=== PATIENT | female | born 1965 | race Caucasian/White ===

== ENCOUNTER 2022-08-07 06:14 | Inpatient (IN) ==
--- NOTE | 2022-08-06 15:27 | XRay Report ---
CLINICAL INFORMATION: Preop COMPARISON: None. TECHNIQUE: PA and lateral views were obtained. FINDINGS: The heart size, mediastinum and pulmonary vessels are unremarkable. The lungs are clear. There are no effusions. The bones and soft tissues are within normal limits. IMPRESSION: Normal chest. Interpreted and Authenticated by: Abhilash Edmonds 08/06/22
[2022-08-06 17:19] LABS: Basophils # (Auto) 0.08 K/mcL (0.00-0.30); Basophils % (Auto) 1.1 % (0.0-2.0); Eosinophils # (Auto) 0.14 K/mcL (0.00-0.70); Eosinophils % (Auto) 1.9 % (0.0-7.0); Hematocrit 43.1 % (34.1-44.9); Hemoglobin 14.1 g/dL (11.2-15.7); Lymphocytes # (Auto) 1.81 K/mcL (1.50-4.80); Lymphocytes % (Auto) 24.2 % (15.5-49.0); Mean Cell Volume 88.3 fL (80.0-100.0); Mean Corpuscular HGB Conc 32.7 g/dL (31.0-36.0); Mean Platelet Volume 8.8 fL (8.8-12.5); Monocytes # (Auto) 0.71 K/mcL (0.10-0.90); Monocytes % (Auto) 9.5 % (1.0-12.0); Neutrophils % (Auto) 62.8 % (38.0-78.0); Platelet Count 366 K/mcL (140-440); RBC 4.88 M/mcL (3.59-5.38); Red Cell Distribution Width 13.4 % (11.5-14.5); WBC 7.5 K/mcL (4.5-11.0)
[2022-08-06 17:25] LABS: INR 0.9 (0.9-1.1); Partial Thromboplastin Time 28.7 sec (20.0-37.0); Prothrombin Time 12.6 sec (11.9-14.5)
[2022-08-06 17:48] LABS: ALT/SGPT 20 U/L (<40); AST/SGOT 23 U/L (<32); Albumin 4.6 gm/dL (3.2-5.2); Albumin/Globulin Ratio 1.4 (1.0-2.3); Alkaline Phosphatase 67 U/L (39-117); Bilirubin,Total 0.3 mg/dL (0.1-1.0); Blood Urea Nitrogen 21 mg/dL (6-20); Calcium 10.1 mg/dL (8.6-10.4); Carbon Dioxide 31 mmol/L (22-30); Chloride 94 mmol/L (96-108); Globulin 3.3 gm/dL (2.2-3.7); Glomerular Filtration Rate 45; Glucose 113 mg/dL (70-105)
[2022-08-06 17:55] LABS: Estimated Average Glucose(eAG) 146 mg/dL; Hemoglobin A1C 6.7 % Hgb (4.0-6.0)
[~2022-08-07 06:14] MED LIST: CEFEPIME 2 GM VIAL IV SCH
[2022-08-07] MEDS ORDERED: MIDAZOLAM 2 MG/2 ML VIAL ONE (07:29)
[2022-08-07] MEDS ORDERED: LIDOCAINE HCL/PF 100 MG/5 ML SYRINGE IV ONE (07:29)
[2022-08-07] MEDS ORDERED: ROCURONIUM 10 MG/ML ML IV ONE (07:29)
[2022-08-07] MEDS ORDERED: fentaNYL 100 MCG/2 ML VIAL IV ONE (07:29)
[2022-08-07] MEDS ORDERED: SUGAMMADEX SODIUM 200 MG/2 ML VIAL IV ONE (07:29)
[2022-08-07] MEDS ORDERED: PROPOFOL 200 MG/20 ML VIAL IV ONE (07:29)
[2022-08-07] MEDS ORDERED: ONDANSETRON 4 MG/2 ML VIAL ONE (07:29)
[2022-08-07] MEDS ORDERED: DEXAMETHASONE 10 MG/ML VIAL ONE (07:29)
[2022-08-07] MEDS ORDERED: ONDANSETRON 4 MG/2 ML VIAL IV PRN ×2 (08:13→08:25)
[2022-08-07] MEDS ORDERED: PROMETHAZINE 25 MG/ML VIAL IV PRN (08:13)
--- NOTE | 2022-08-07 08:13 | Brief Operative Note ---
Brief Operative Note Date of procedure: 08/07/22 Pre-op diagnosis: chronic gastrocutaneous fistula Post-op diagnosis: other (gastrocutaneous fistula) Procedure: laparoscopic closure of gastrocutaneous fistula excision of fistula tract of abdominal wall Grafts/Implants: No Anesthesia: GETA Findings: chronic adherence of stomach to abdominal wall with fistula formation Complications: none Surgeon: Jay Lindsey Estimated blood loss (cc): 5 Specimens Removed/Pathology: none sent Condition: stable Disposition: PACU
[2022-08-07] MEDS ORDERED: IPRATROPIUM/ALBUTEROL 3 ML AMPUL.NEB NEB PRN (08:25)
[2022-08-07] MEDS ORDERED: HYDROmorphone 0.5 MG/0.5 ML SYRINGE IV PRN (08:25)
[2022-08-07] MEDS ORDERED: ACETAMINOPHEN 1,000 MG/100 ML BAG IV ONE (08:25)
[2022-08-07] MEDS ORDERED: fentaNYL 100 MCG/2 ML VIAL IV PRN (08:25)
[2022-08-07] MEDS: 0.9 % SODIUM CHLORIDE 1,000 ML IV SCH ×2 (10:21→23:52)
[2022-08-07] MEDS: DOCUSATE SODIUM 100 MG CAPSULE PO SCH ×2 (10:29→20:25)
[2022-08-07] MEDS: HYDROCHLOROTHIAZIDE 25 MG TABLET PO SCH (10:29)
[2022-08-07] MEDS: PIOGLITAZONE 15 MG TABLET PO SCH (10:29)
[2022-08-07] MEDS: oxyCODONE HCL 5 MG TABLET PO PRN ×3 (10:29→20:44)
--- NOTE | 2022-08-07 10:53 | Operative Note ---
DATE OF OPERATION: 08/07/2022 PREOPERATIVE DIAGNOSIS: Chronic gastrocutaneous fistula. POSTOPERATIVE DIAGNOSIS: Chronic gastrocutaneous fistula. PROCEDURE: Laparoscopic closure of gastrocutaneous fistula with excision of fistulous tract of abdominal wall. SURGEON: Jay Lindsey M.D. DESCRIPTION OF PROCEDURE: Under general anesthesia, the patient's abdomen was prepped and draped in a sterile field. Timeout procedure was carried out as per protocol. Supraumbilical midline incision was made. Veress needle was inserted uneventfully. Abdomen was insufflated with 3 liters of CO2. A 12 mm port was placed. Laparoscope was placed. The adherence of the stomach to the anterior abdominal wall in the upper midline was confirmed. Under videoscopic guidance, a 12 mm port was placed in the left side of the abdomen at the level of the umbilicus. A 5 mm port was placed laterally in the left upper quadrant. Adhesions to the stomach attaching it to the abdominal wall were incised with electrocautery. The adherent gastric wall was then dissected and transected using the Endo STACY stapler at a level even with the abdominal wall. This closed the stomach and detached it from the abdominal wall. The remnant of gastric wall that remained was left intact. Inspection of the abdomen did not reveal any other abnormality. The fistulous tract through the abdominal wall was circumferentially excised down to the peritoneum. The peritoneum was not opened. The fistulous tract was only about 2 to 3 mm. CO2 was allowed to escape from the abdomen and the ports were removed. The residual abdominal wall defect was then packed with Aquacel AG gauze. It was covered with 4 x 4's and tape. The fascia and the supraumbilical midline incision was closed with interrupted 0 Vicryl. The abdominal incisions were closed with betty. They were then covered with Tegaderm. The patient tolerated the procedure well. She was awakened, extubated, and transferred to the postanesthetic care unit in satisfactory condition. LCS:magdiel Job ID: [id number] Doc ID: [id number] Jay Lindsey M.D.
[2022-08-07] MEDS ORDERED: DEXTROSE 31 GM ORAL.SUSP PO PRN (11:48)
[2022-08-07] MEDS ORDERED: DEXTROSE 50% 50 ML VIAL IV PRN (11:48)
--- NOTE | 2022-08-07 12:02 | EKG ---
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 Measurements Intervals [place] Rate: 105 P: 50 IN: 180 QRS: 4 QRSD: 80 T: 56 QT: 359 QTc: 475 Interpretive Statements Sinus tachycardia Probable left atrial enlargement Low voltage, precordial leads Minimal ST depression, diffuse leads Electronically Signed On 08-07-2022 12:01:43 PST by Abhilash Ogden M.D. /store/[email or web address]/[id number]
[2022-08-07] MEDS: INSULIN LISPRO 1 UNIT/0.01 ML UNIT SQ SCH ×3 (12:35→20:44)
[2022-08-07] MEDS: CEFEPIME 2 GM VIAL IV SCH ×2 (14:42→22:14)
[2022-08-07] MEDS: 0.9 % SODIUM CHLORIDE 10 ML SYRINGE IV SCH ×2 (14:42→22:15)
[2022-08-07] MEDS: SENNOSIDES 1 TABLET PO SCH (20:25)
[2022-08-08] MEDS: 0.9 % SODIUM CHLORIDE 10 ML SYRINGE IV SCH ×3 (05:36→22:46)
[2022-08-08] MEDS: CEFEPIME 2 GM VIAL IV SCH ×3 (05:36→22:46)
[2022-08-08 07:39] LABS: Basophils # (Auto) 0.02 K/mcL (0.00-0.30); Basophils % (Auto) 0.2 % (0.0-2.0); Eosinophils # (Auto) 0.03 K/mcL (0.00-0.70); Eosinophils % (Auto) 0.3 % (0.0-7.0); Hematocrit 37.7 % (34.1-44.9); Hemoglobin 12.3 g/dL (11.2-15.7); Lymphocytes # (Auto) 1.36 K/mcL (1.50-4.80); Lymphocytes % (Auto) 14.5 % (15.5-49.0); Mean Cell Volume 90.4 fL (80.0-100.0); Mean Corpuscular HGB Conc 32.6 g/dL (31.0-36.0); Monocytes # (Auto) 0.67 K/mcL (0.10-0.90); Monocytes % (Auto) 7.1 % (1.0-12.0); Neutrophils % (Auto) 77.6 % (38.0-78.0); Platelet Count 327 K/mcL (140-440); RBC 4.17 M/mcL (3.59-5.38); Red Cell Distribution Width 13.6 % (11.5-14.5); WBC 9.4 K/mcL (4.5-11.0)
[2022-08-08] MEDS: INSULIN LISPRO 1 UNIT/0.01 ML UNIT SQ SCH ×4 (07:45→21:12)
[2022-08-08] MEDS: glipiZIDE 5 MG TAB.XL.24H PO SCH (07:53)
[2022-08-08] MEDS: PANTOPRAZOLE 40 MG TABLET PO SCH (07:53)
[2022-08-08 08:12] LABS: ALT/SGPT 16 U/L (<40); AST/SGOT 17 U/L (<32); Albumin 3.8 gm/dL (3.2-5.2); Albumin/Globulin Ratio 1.5 (1.0-2.3); Alkaline Phosphatase 52 U/L (39-117); Bilirubin,Direct < 0.2 mg/dL (0-0.3); Bilirubin,Total 0.4 mg/dL (0.1-1.0); Blood Urea Nitrogen 13 mg/dL (6-20); Calcium 9.4 mg/dL (8.6-10.4); Carbon Dioxide 29 mmol/L (22-30); Chloride 97 mmol/L (96-108); Globulin 2.5 gm/dL (2.2-3.7); Glomerular Filtration Rate 70; Glucose 112 mg/dL (70-105); Lactate Dehydrogenase 222 U/L (135-225); Phosphorous 3.9 mg/dL (2.5-4.5); Triglycerides 127 mg/dL (<150); Uric Acid 5.4 mg/dL (2.5-8.0)
[2022-08-08] MEDS: PIOGLITAZONE 15 MG TABLET PO SCH (09:53)
[2022-08-08] MEDS: DOCUSATE SODIUM 100 MG CAPSULE PO SCH ×2 (09:53→21:13)
[2022-08-08] MEDS: HYDROCHLOROTHIAZIDE 25 MG TABLET PO SCH (10:04)
[2022-08-08] MEDS: 0.9 % SODIUM CHLORIDE 1,000 ML IV SCH (12:01)
[2022-08-08] MEDS: oxyCODONE HCL 5 MG TABLET PO PRN (15:01)
--- NOTE | 2022-08-08 15:51 | General Surgery Progress Note ---
SUBJECTIVE Subjective Patient information: Note initiated : 08/08/22 at 3:50 pm Service Date, if different from initiated Date: [] Patient: Maria Dolores Engel 56 y/o F admitted on 08/07/22 for Laparoscopic Closure of Gastrocutaneous Fistula & . Chief Complaint: [] Interval history: Patient is doing well. She has had no significant abdominal pain. She complains of hunger. She is afebrile. White blood count is normal Constitutional Vitals: Vital Signs Temp Pulse Resp BP Pulse Ox O2 Del Method O2 Flow Rate 97.8 F 82 14 129/65 100 Room Air 6 08/08/22 12:00 08/08/22 12:00 08/08/22 12:00 08/08/22 12:00 08/08/22 12:00 08/08/22 12:00 08/07/22 08:33 Period Temp Pulse Resp BP Sys/Rene Pulse Ox O2 Del Method O2 Flow Rate Last 24 Hr 97.1 F-97.9 F 75-94 14-18 97-129/48-65 93-100 Room Air-Room Air Intake and Output 08/08/22 08/08/22 08/08/22 03:59 11:59 19:59 Intake Total 6905 058 9368 Output Total 1150 Balance 60 380 1911 Weight 213 lb 8 oz Intake & Output: Intake & Output 08/08/22 08/08/22 08/08/22 03:59 11:59 19:59 Intake Total 5354 002 8111 Output Total 1150 Balance 60 380 1911 Weight 213 lb 8 oz Intake: IV 1000 1911 Sodium Chloride 0.9% 1,000 ml @ 1000 1911 75 mls/hr IV .[id number] [facility] Rx#: [id number] Oral 210 380 Output: Void Amount 1150 Other: Meal Jello and popsicle Percent of Meal Consumed 100% Feeding Ability Independent Urine Appearance Clear Urine Color Yellow ENT ENT exam: Present mucous membranes moist and normal oropharynx Neck Neck exam: Present full ROM and normal inspection Respiratory Respiratory exam: Present normal respiratory exam and CTAB Cardiovascular Cardiovascular exam: Present normal rate and rhythm, RRR, +S1 and +S2; Absent JVD GI/Abdominal GI/Abdominal exam: Present normal bowel sounds and soft; Absent distended Additional comments: Fistula site has less erythema and induration Extremities Exam Extremities exam: Present normal inspection and neurovascular intact Neurological Exam Neurological exam: Present alert and oriented X3; Absent motor sensory deficit Psychiatric Psychiatric exam: Present normal affect and normal mood A/P Assessment and plan (1) Gastrocutaneous fistula due to gastrostomy tube: Status: Acute (2) Depression with anxiety: Status: Chronic Comment: Improved. After weaning off of Zoloft, she did not feel that she needed to start bupropion. In remission. Plan Continue present treatment; EEG advance to full liquid diet Time Spent With Patient Time: Total time spent is greater than 50% in coordination of care (as documented) at patient's floor/unit and/or counseling patient:
[2022-08-08] MEDS: SENNOSIDES 1 TABLET PO SCH (21:13)
[2022-08-09] MEDS: 0.9 % SODIUM CHLORIDE 1,000 ML IV SCH (00:05)
[2022-08-09] MEDS: oxyCODONE HCL 5 MG TABLET PO PRN (02:04)
[2022-08-09] MEDS: CEFEPIME 2 GM VIAL IV SCH (05:06)
[2022-08-09] MEDS: 0.9 % SODIUM CHLORIDE 10 ML SYRINGE IV SCH (05:07)
[2022-08-09] MEDS: INSULIN LISPRO 1 UNIT/0.01 ML UNIT SQ SCH ×2 (07:07→11:48)
[2022-08-09] MEDS: PIOGLITAZONE 15 MG TABLET PO SCH (08:15)
[2022-08-09] MEDS: glipiZIDE 5 MG TAB.XL.24H PO SCH (08:17)
[2022-08-09] MEDS: HYDROCHLOROTHIAZIDE 25 MG TABLET PO SCH (08:17)
[2022-08-09] MEDS: DOCUSATE SODIUM 100 MG CAPSULE PO SCH (08:18)
[2022-08-09] MEDS: PANTOPRAZOLE 40 MG TABLET PO SCH (08:18)
--- NOTE | 2022-08-09 13:18 | Discharge Summary ---
Discharge Provider Provider IMPORTANT FOLLOW-UP INFORMATION FOR PCP: Patient information: Note initiated : 08/09/22 at 1:12 pm Service Date, if different from initiated Date: [] Patient: Maria Dolores Engel 56 y/o F admitted on 08/07/22 for Laparoscopic Closure of Gastrocutaneous Fistula & . Chief Complaint: [] Date of admission: 08/07/22 09:09 Discharge date: 08/09/22 Primary care physician: Abhilash Gallegos DO Admitting clinician: Jay Lindsey Attending physician on admission: Jay Lindsey Attending physician on discharge: Jay Lindsey Discharging clinician: Jay Lindsey COURSE Hospital Course Hospital course: 56 -year-old female who is status post laparoscopic closure of the gastrocutaneous fistula with excision of fistulous tract of the abdominal . This was performed on 07 August 2022. She has done well and has no complaints. She is tolerating clear liquid diet without difficulty. Wound is clearing up nicely. Patient is stable for discharge to home Discharge diagnosis: Gastrocutaneous fistula Secondary discharge diagnosis: Cellulitis of abdominal wall Depression with anxiety Hypertension Diabetes mellitus Reason for admission: Postoperative closure of gastrocutaneous fistula Procedures: Laparoscopic closure of gastrocutaneous fistula with excision of infection of abdominal wound Pertinent studies/significant findings: None Complications: None Time Spent with Patient Time attestation: Total time spent providing and/or coordinating discharge services: Time spent: Less than 30 minutes Physical Examination Vital Signs Vital signs: Temp Pulse Resp BP Pulse Ox O2 Del Method O2 Flow Rate 97.7 F 88 16 136/58 100 Room Air 6 08/09/22 12:00 08/09/22 12:00 08/09/22 12:08/09/22 12:08/09/22 12:08/09/22 12:08/07/22 08:33 General physical appearance General physical exam: well developed, well nourished, no distress and moderate pain Eyes Eye exam: PERRL and normal ocular movement ENT ENT exam: normal nares, normal mucosa and no congestion Head Head exam IM: Present atraumatic, normal inspection and normocephalic Neck Neck exam: no masses, no bruits, trachea midline, no lymphadenopathy and no venous distension Cardiovascular Cardiovascular exam IM: Present normal rate and rhythm, RRR, +S1 and +S2; Absent JVD Respiratory Respiratory exam: normal expansion, normal respiratory effort and clear to auscultation Abdomen Abdomen: Present soft and surgical scars (Port sites are unremarkable; early granulation Of abdominal wall incision) Integumentary Integumentary: Present no rash, no growths and no abnormal pigmentation Neurologic Neurologic: Present normal coordination Musculoskeletal Musculoskeletal: Present normal gait and normal posture Psychiatric Psychiatric: Present oriented to time, oriented to person, oriented to place, speech is normal and memory intact Discharge Plan Patient/Caregiver Discharge Instructions Activity: increase activity as tolerated Diet: Regular Diet and Consistent Carbohydrate Prescriptions: New ciprofloxacin HCl 500 mg tablet 500 mg PO BID MDD The Qty: 40 0RF oxycodone-acetaminophen [Endocet] 10-325 mg tablet 1 tab PO Q4H PRN (Reason: Pain) Qty: 30 0RF No Action hydrochlorothiazide 25 mg tablet 25 mg PO QAM Qty: 90 3RF pioglitazone 30 mg tablet 30 mg PO QDAY Qty: 90 3RF rosuvastatin 5 mg tablet 5 mg PO QDAY Qty: 90 1RF Victoza 2-Javed 0.6 mg/0.1 mL (18 mg/3 mL) pen injector 1.2 mg subcut QDAY Qty: 6 11RF (DME) pen needle, diabetic [Comfort EZ Pen Almo] 33 gauge x 5/32" needle See Rx Instructions .Route Qty: 200 3RF Rx Instructions: Use with Victoza BID potassium chloride 10 mEq tablet extended release 10 meq PO QDAY Qty: 90 3RF (DME) blood sugar diagnostic [Contour Next Test Strips] Strip See Rx Instructions .ROUTE .MEDSUPPLY Qty: 100 3RF Rx Instructions: Test once daily- non insulin (DME) lancets [BD Ultra Fine Lancets] 33 gauge misc See Rx Instructions .ROUTE .MEDSUPPLY Qty: 100 3RF Rx Instructions: Test once daily-non insulin dependent glipizide 10 mg tablet extended release 24hr 10 mg PO QDAY Qty: 90 3RF cefuroxime axetil 500 mg tablet 500 mg PO BID Qty: 40 0RF sulfamethoxazole-trimethoprim [Bactrim DS] 800-160 mg tablet 1 tab PO BID Qty: 40 0RF Prescription drug monitoring program results: PDMP not reviewed Follow Up Plan Follow up with: Jay Lindsey MD [Physician] - (Contact office on Friday for dressing change) Patient Disposition: Home, Self-Care Prognosis: Good Rehab Potential: Good I certify that the patient requires SNF services: No Overall status at discharge: patient is progressing back to baseline Pending Pending Pending: Resuscitation Status Resuscitate (Full Code) Diet Full Liquid Diet Start FriAug 08 1548 Cefepime HCl (Cefepime 2 Gm Vial) 2 gm IV Q8H [facility]; Protocol Last Admin: 08/09/22 05:06 Dose: 2 gm Documented By: Admin: 08/08/22 22:46 Dose: 2 gm Documented By: Admin: 08/08/22 14:48 Dose: 2 gm Documented By: Admin: 08/08/22 05:36 Dose: 2 gm Documented By: Admin: 08/07/22 22:14 Dose: 2 gm Documented By: Admin: 08/07/22 14:42 Dose: 2 gm Documented By: CEE Diagnostic Test (Pha) (Accu-Chek 1 Each Strip) 1 each FS PRN PRN PRN Reason: DM Last Admin: 08/07/22 08:29 Dose: 1 each Documented By: CINDA Diagnostic Test (Pha) (Accu-Chek 1 Each Strip) 1 each FS ACHS [facility] Last Admin: 08/09/22 11:44 Dose: 1 each Documented By: Admin: 08/09/22 07:07 Dose: 1 each Documented By: Admin: 08/08/22 21:13 Dose: 1 each Documented By: Admin: 08/08/22 17:12 Dose: 1 each Documented By: Admin: 08/08/22 11:53 Dose: 1 each Documented By: Admin: 08/08/22 07:44 Dose: 1 each Documented By: Admin: 08/07/22 20:24 Dose: 1 each Documented By: Admin: 08/07/22 16:30 Dose: 1 each Documented By: Admin: 08/07/22 11:15 Dose: 1 each Documented By: CEE Docusate Sodium (Docusate Sodium 100 Mg Capsule) 100 mg PO BID [facility] Last Admin: 08/09/22 08:18 Dose: 100 mg Documented By: Co-signed By: AMIE Admin: 08/08/22 21:13 Dose: 100 mg Documented By: Admin: 08/08/22 09:53 Dose: 100 mg Documented By: Admin: 08/07/22 20:25 Dose: 100 mg Documented By: Admin: 08/07/22 10:29 Dose: 100 mg Documented By: CEE Glipizide (Glipizide 5 Mg Tab.Xl.24h) 10 mg PO [facility] Last Admin: 08/09/22 08:17 Dose: 10 mg Documented By: Co-signed By: AMEI Admin: 08/08/22 07:53 Dose: 10 mg Documented By: YURI Hydrochlorothiazide (Hydrochlorothiazide 25 Mg Tablet) 25 mg PO [facility] Last Admin: 08/09/22 08:17 Dose: 25 mg Documented By: Co-signed By: AMIE Admin: 08/08/22 10:04 Dose: 25 mg Documented By: Admin: 08/07/22 10:29 Dose: 25 mg Documented By: CEE Sodium Chloride (Sodium Chloride 0.9%) 1,000 mls @ 75 mls/hr IV .[id number] [facility] Last Admin: 08/09/22 00:05 Dose: 75 mls/hr Documented By: Infusion: 08/08/22 12:06 Dose: 0 mls/hr Documented By: Admin: 08/08/22 12:01 Dose: 75 mls/hr Documented By: Infusion: 08/08/22 12:01 Dose: 75 mls/hr Documented By: Admin: 08/07/22 23:52 Dose: 75 mls/hr Documented By: Infusion: 08/07/22 23:41 Dose: 75 mls/hr Documented By: Admin: 08/07/22 10:21 Dose: 75 mls/hr Documented By: CEE Insulin Human Lispro (Insulin Lispro 1 Unit/0.01 Ml Unit) 0 unit SQ ACHS [facility]; Protocol Last Admin: 08/09/22 11:48 Dose: 2 units Documented By: Admin: 08/09/22 07:07 Dose: Not Given Documented By: Admin: 08/08/22 21:12 Dose: 4 units Documented By: Admin: 08/08/22 17:12 Dose: Not Given Documented By: Admin: 08/08/22 11:55 Dose: Not Given Documented By: Admin: 08/08/22 07:45 Dose: Not Given Documented By: Admin: 08/07/22 20:44 Dose: 2 units Documented By: Admin: 08/07/22 16:53 Dose: 2 units Documented By: Admin: 08/07/22 12:35 Dose: 4 units Documented By: CEE Oxycodone HCl (Oxycodone Hcl 5 Mg Tablet) 10 mg PO Q4HP PRN; Protocol PRN Reason: Per Pain Protocol Last Admin: 08/09/22 02:04 Dose: 10 mg Documented By: Admin: 08/08/22 15:01 Dose: 10 mg Documented By: Admin: 08/07/22 20:44 Dose: 10 mg Documented By: Admin: 08/07/22 16:28 Dose: 10 mg Documented By: Admin: 08/07/22 10:29 Dose: 10 mg Documented By: CEE Pantoprazole S[facility] ([facility]oprazole 40 Mg Tablet) [facility]: 08/09/22 08:18 Dose: 40 mg Documented By: Co-signed By: AMIE Admin: 08/08/22 07:53 Dose: 40 mg Documented By: YURI Liraglutide [Victoza 2-Javed] 0.6 Mg/0.1 Ml Pen 1.2 dose SUB-Q QDAY [facility] Admin: 08/09/22 08:47 Dose: Not Given Documented By: Admin: 08/08/22 09:57 Dose: Not Given Documented By: Admin: 08/07/22 10:32 Dose: Not Given Documented By: CEE Pioglitazone HCl (Pioglitazone 15 Mg Tablet) 30 mg PO DAILY [facility] Admin: 08/09/22 08:15 Dose: 30 mg Documented By: Co-signed By: AMIE Admin: 08/08/22 09:53 Dose: 30 mg Documented By: Admin: 08/07/22 10:29 Dose: 30 mg Documented By: CEE Senjenelle (Sennosides 1 Tablet) 2 tab PO HS [facility] Last Admin: 08/08/22 21:13 Dose: 2 tab Documented By: Admin: 08/07/22 20:25 Dose: 2 tab Documented By: RUSS Sodium Chloride (0.9 % Sodium Chloride 10 Ml Syringe) 10 ml IV Q8 [facility] Last Admin: 08/09/22 05:07 Dose: 10 ml Documented By: Admin: 08/08/22 22:46 Dose: 10 ml Documented By: Admin: 08/08/22 12:07 Dose: Not Given Documented By: Admin: 08/08/22 05:36 Dose: Not Given Documented By: Admin: 08/07/22 22:15 Dose: Not Given Documented By: Admin: 08/07/22 14:42 Dose: Not Given Documented By: CEE Shift Summary 08/09/22 03:02 Shift Summary by Maximo Walls Primary Diagnosis: Registration Status: IP Date of Surgery (if applicable): 08/07 Pertinent Medical Dx/Issue(s): Depression, anxiety, Diabetes (II), HTN Med management (antibiotics, diuretics, BP): Maxipime Skin/Wound Care: lap sites x4, gauze on top middle site, other 3 haves betty and tegaderm in place Vital Signs with Trends: VSS O2, liter flow/saturations: RA, satting mid to high 90s Pain management (acute vs. chronic): acute, occasional pain treated with oxycodone Lab/Rad (abnormals, trends): N/A Neuro/Mental Status: A/Ox4 Cardiac Rhythm, Alarm Settings: N/A Urinary Elimination Device: Bathroom Date of last BM: none since surgery Lines/Tubes: IV LFA running NS at 75ml/hr Activity: independent, calls appropriately to walk hallway, walked to nurses station x1 Recommendations/questions for MD: Home diabetic Med, patient has not had since arrival. it is scheduled for the morning but the patient states that at home she takes it at night before bed, and refuses to deviate from that routine. Discharge Plan (needs, disposition, etc): Home when appropriate. Summary: patient had a good night. only complained of pain x1 in middle of the night, treated with PO opioid medication. on CL diet, hopefully can advance diet today. BT hypoactive, dressings are CDI Initialized on 08/09/22 03:02 - END OF NOTE
--- NOTE | 2022-08-09 13:33 | Discharge Summary ---
Discharge Provider Provider IMPORTANT FOLLOW-UP INFORMATION FOR PCP: Patient information: Note initiated : 08/09/22 at 1:28 pm Service Date, if different from initiated Date: [] Patient: Maria Dolores Engel 56 y/o F admitted on 08/07/22 for Laparoscopic Closure of Gastrocutaneous Fistula & . Chief Complaint: [] Date of admission: 08/07/22 09:09 Discharge date: 08/09/22 Primary care physician: Abhilash Gallegos DO Admitting clinician: Jay Lindsey Attending physician on admission: Jay Lindsey Attending physician on discharge: Jay Lindsey Discharging clinician: Jay Lindsey COURSE Hospital Course Hospital course: 56-year-old female who is status post laparoscopic closure of the gastrocutaneous fistula. She has had the fistula since 2019 when she had a PEG tube discontinued. Generally patients will close but hers has been resistant to closure. She has had multiple infections recently treated with antibiotics. Patient had laparoscopic closure of the fistula and the 25th and has done well. The abdominal wall fistula was excised. Patient has not had any complaints. She is tolerated without difficulty. 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 Reason for admission: Postoperative care Procedures: Laparoscopic closure of gastrocutaneous fistula Pertinent studies/significant findings: None Complications: None Time Spent with Patient Time attestation: Total time spent providing and/or coordinating discharge services: Time spent: Less than 30 minutes Physical Examination Vital Signs Vital signs: Temp Pulse Resp BP Pulse Ox O2 Del Method O2 Flow Rate 97.7 F 88 16 136/58 100 Room Air 6 08/09/22 12:08/09/22 12:08/09/22 12:08/09/22 12:08/09/22 12:08/09/22 12:08/07/22 08:33 Head Head exam IM: Present atraumatic, normal inspection and normocephalic Neck Neck exam: no masses, no bruits, trachea midline and no lymphadenopathy Cardiovascular Cardiovascular exam IM: Present normal rate and rhythm, RRR, +S1 and +S2; Absent JVD Respiratory Respiratory exam: normal expansion, normal respiratory effort and clear to auscultation Abdomen Abdomen: Present surgical scars (Port sites are healing uneventfully) and wound (Upper midline wound is granulating in without difficulty) Integumentary Integumentary: Present no rash, no growths and no abnormal pigmentation Neurologic Neurologic: Present normal coordination and normal sensation Musculoskeletal Musculoskeletal: Present normal gait and normal posture Psychiatric Psychiatric: Present oriented to time, oriented to person, oriented to place, speech is normal and memory intact Discharge Plan Patient/Caregiver Discharge Instructions Activity: increase activity as tolerated Diet: Regular Diet and Consistent Carbohydrate Prescriptions: New ciprofloxacin HCl 500 mg tablet 500 mg PO BID MDD The Qty: 40 0RF oxycodone-acetaminophen [Endocet] 10-325 mg tablet 1 tab PO Q4H PRN (Reason: Pain) Qty: 30 0RF No Action hydrochlorothiazide 25 mg tablet 25 mg PO QAM Qty: 90 3RF pioglitazone 30 mg tablet 30 mg PO QDAY Qty: 90 3RF rosuvastatin 5 mg tablet 5 mg PO QDAY Qty: 90 1RF Victoza 2-Javed 0.6 mg/0.1 mL (18 mg/3 mL) pen injector 1.2 mg subcut QDAY Qty: 6 11RF (DME) pen needle, diabetic [Comfort EZ Pen Wilson] 33 gauge x 5/32" needle See Rx Instructions .Route Qty: 200 3RF Rx Instructions: Use with Victoza BID potassium chloride 10 mEq tablet extended release 10 meq PO QDAY Qty: 90 3RF (DME) blood sugar diagnostic [Contour Next Test Strips] Strip See Rx Instructions .ROUTE .MEDSUPPLY Qty: 100 3RF Rx Instructions: Test once daily- non insulin (DME) lancets [BD Ultra Fine Lancets] 33 gauge misc See Rx Instructions .ROUTE .MEDSUPPLY Qty: 100 3RF Rx Instructions: Test once daily-non insulin dependent glipizide 10 mg tablet extended release 24hr 10 mg PO QDAY Qty: 90 3RF cefuroxime axetil 500 mg tablet 500 mg PO BID Qty: 40 0RF sulfamethoxazole-trimethoprim [Bactrim DS] 800-160 mg tablet 1 tab PO BID Qty: 40 0RF Prescription drug monitoring program results: PDMP not reviewed Follow Up Plan Follow up with: Jay Lindsey MD [Physician] - (Contact office on Friday for dressing change) Patient Disposition: Home, Self-Care Prognosis: Good Rehab Potential: Good I certify that the patient requires SNF services: No Overall status at discharge: patient is progressing back to baseline Pending Pending Pending: Resuscitation Status Resuscitate (Full Code) Diet Full Liquid Diet Start FriAug 08 154 Cefepime HCl (Cefepime 2 Gm Vial) 2 gm IV Q8H [facility]; Protocol Last Admin: 08/09/22 05:06 Dose: 2 gm Documented By: Admin: 08/08/22 22:46 Dose: 2 gm Documented By: Admin: 08/08/22 14:48 Dose: 2 gm Documented By: Admin: 08/08/22 05:36 Dose: 2 gm Documented By: Admin: 08/07/22 22:14 Dose: 2 gm Documented By: Admin: 08/07/22 14:42 Dose: 2 gm Documented By: CEE Diagnostic Test (Pha) (Accu-Chek 1 Each Strip) 1 each FS PRN PRN PRN Reason: DM Last Admin: 08/07/22 08:29 Dose: 1 each Documented By: CINDA Diagnostic Test (Pha) (Accu-Chek 1 Each Strip) 1 each FS ACHS [facility] Last Admin: 08/09/22 11:44 Dose: 1 each Documented By: Admin: 08/09/22 07:07 Dose: 1 each Documented By: Admin: 08/08/22 21:13 Dose: 1 each Documented By: Admin: 08/08/22 17:12 Dose: 1 each Documented By: Admin: 08/08/22 11:53 Dose: 1 each Documented By: Admin: 08/08/22 07:44 Dose: 1 each Documented By: Admin: 08/07/22 20:24 Dose: 1 each Documented By: Admin: 08/07/22 16:30 Dose: 1 each Documented By: Admin: 08/07/22 11:15 Dose: 1 each Documented By: CEE Docusate Sodium (Docusate Sodium 100 Mg Capsule) 100 mg PO BID [facility] Last Admin: 08/09/22 08:18 Dose: 100 mg Documented By: Co-signed By: AMIE Admin: 08/08/22 21:13 Dose: 100 mg Documented By: Admin: 08/08/22 09:53 Dose: 100 mg Documented By: Admin: 08/07/22 20:25 Dose: 100 mg Documented By: Admin: 08/07/22 10:29 Dose: 100 mg Documented By: CEE Glipizide (Glipizide 5 Mg Tab.Xl.24h) 10 mg PO [facility] Last Admin: 08/09/22 08:17 Dose: 10 mg Documented By: Co-signed By: AMIE Admin: 08/08/22 07:53 Dose: 10 mg Documented By: YURI Hydrochlorothiazide (Hydrochlorothiazide 25 Mg Tablet) 25 mg PO [facility] Last Admin: 08/09/22 08:17 Dose: 25 mg Documented By: Co-signed By: AMIE Admin: 08/08/22 10:04 Dose: 25 mg Documented By: Admin: 08/07/22 10:29 Dose: 25 mg Documented By: CEE Sodium Chloride (Sodium Chloride 0.9%) 1,000 mls @ 75 mls/hr IV .[id number] [facility] Last Admin: 08/09/22 00:05 Dose: 75 mls/hr Documented By: Infusion: 08/08/22 12:06 Dose: 0 mls/hr Documented By: Admin: 08/08/22 12:01 Dose: 75 mls/hr Documented By: Infusion: 08/08/22 12:01 Dose: 75 mls/hr Documented By: Admin: 08/07/22 23:52 Dose: 75 mls/hr Documented By: Infusion: 08/07/22 23:41 Dose: 75 mls/hr Documented By: Admin: 08/07/22 10:21 Dose: 75 mls/hr Documented By: CEE Insulin Human Lispro (Insulin Lispro 1 Unit/0.01 Ml Unit) 0 unit SQ [facility]; Protocol Last Admin: 08/09/22 11:48 Dose: 2 units Documented By: Admin: 08/09/22 07:07 Dose: Not Given Documented By: Admin: 08/08/22 21:12 Dose: 4 units Documented By: Admin: 08/08/22 17:12 Dose: Not Given Documented By: Admin: 08/08/22 11:55 Dose: Not Given Documented By: Admin: 08/08/22 07:45 Dose: Not Given Documented By: Admin: 08/07/22 20:44 Dose: 2 units Documented By: Admin: 08/07/22 16:53 Dose: 2 units Documented By: [email or web address] Admin: 08/07/22 12:35 Dose: 4 units Documented By: CEE Oxycodone HCl (Oxycodone Hcl 5 Mg Tablet) 10 mg PO Q4HP PRN; Protocol PRN Reason: Per Pain Protocol Last Admin: 08/09/22 02:04 Dose: 10 mg Documented By: Admin: 08/08/22 15:01 Dose: 10 mg Documented By: Admin: 08/07/22 20:44 Dose: 10 mg Documented By: Admin: 08/07/22 16:28 Dose: 10 mg Documented By: Admin: 08/07/22 10:29 Dose: 10 mg Documented By: CEE Pantoprazole Sodium (Pantoprazole 40 Mg Tablet) [address] [facility] Admin: 08/09/22 08:18 Dose: 40 mg Documented By: Co-signed By: AMIE Admin: 08/08/22 07:53 Dose: 40 mg Documented By: YURI Liraglutide [Victoza 2-Javed] 0.6 Mg/0.1 Ml Pen 1.2 dose SUB-Q QDAY [facility] Admin: 08/09/22 08:47 Dose: Not Given Documented By: Admin: 08/08/22 09:57 Dose: Not Given Documented By: Admin: 08/07/22 10:32 Dose: Not Given Documented By: CEE Pioglitazone HCl (Pioglitazone 15 Mg Tablet) 30 mg PO DAILY [facility] Admin: 08/09/22 08:15 Dose: 30 mg Documented By: Co-signed By: AMIE Admin: 08/08/22 09:53 Dose: 30 mg Documented By: Admin: 08/07/22 10:29 Dose: 30 mg Documented By: CEE Senna (Sennosides 1 Tablet) 2 tab PO HS [facility] Last Admin: 08/08/22 21:13 Dose: 2 tab Documented By: Admin: 08/07/22 20:25 Dose: 2 tab Documented By: RUSS Sodium Chloride (0.9 % Sodium Chloride 10 Ml Syringe) 10 ml IV Q8 [facility] Last Admin: 08/09/22 05:07 Dose: 10 ml Documented By: Admin: 08/08/22 22:46 Dose: 10 ml Documented By: Admin: 08/08/22 12:07 Dose: Not Given Documented By: Admin: 08/08/22 05:36 Dose: Not Given Documented By: Admin: 08/07/22 22:15 Dose: Not Given Documented By: Admin: 08/07/22 14:42 Dose: Not Given Documented By: CEE Shift Summary 08/09/22 03:02 Shift Summary by Maximo Walls Primary Diagnosis: Registration Status: IP Date of Surgery (if applicable): 08/07 Pertinent Medical Dx/Issue(s): Depression, anxiety, Diabetes (II), HTN Med management (antibiotics, diuretics, BP): Maxipime Skin/Wound Care: lap sites x4, gauze on top middle site, other 3 haves betty and tegaderm in place Vital Signs with Trends: VSS O2, liter flow/saturations: RA, satting mid to high 90s Pain management (acute vs. chronic): acute, occasional pain treated with oxycodone Lab/Rad (abnormals, trends): N/A Neuro/Mental Status: A/Ox4 Cardiac Rhythm, Alarm Settings: N/A Urinary Elimination Device: Bathroom Date of last BM: none since surgery Lines/Tubes: IV LFA running NS at 75ml/hr Activity: independent, calls appropriately to walk hallway, walked to nurses station x1 Recommendations/questions for MD: Home diabetic Med, patient has not had since arrival. it is scheduled for the morning but the patient states that at home she takes it at night before bed, and refuses to deviate from that routine. Discharge Plan (needs, disposition, etc): Home when appropriate. Summary: patient had a good night. only complained of pain x1 in middle of the night, treated with PO opioid medication. on CL diet, hopefully can advance diet today. BT hypoactive, dressings are CDI Initialized on 08/09/22 03:02 - END OF NOTE
== END 2022-08-09 15:05 | disposition home or self-care (01) | DRG 354 ==
LOC: SUR 06:14 → MEDSUR 09:09
PROVIDERS: ADMIT Family Medicine Adult Medicine; ATTEND Family Medicine Adult Medicine